=== PATIENT | male | born 1955 | race Caucasian/White ===

== ENCOUNTER 2016-04-23 08:05 | Day surgery (SDC) | payer OTHER ==
[2016-04-19 09:20] VITALS: BMI 37.0
[2016-04-23] MEDS ORDERED: LIDOCAINE HCL/PF 2% SDV 5ML VIAL ONE (09:19)
[2016-04-23] MEDS ORDERED: PROPOFOL 20 ML ONE (09:20)
[2016-04-23 10:26] VITALS: TEMP 98.1
[2016-04-23 10:41] VITALS: BP 108/60; PULSE 55
== END 2016-04-23 10:50 | disposition home or self-care (01) ==
LOC: FASU-ENDO 08:05
PROVIDERS: ATTEND Internal Medicine Gastroenterology
PROC: 0DJD8ZZ Inspection of Lower Intestinal Tract, Via Natural or Artificial Opening Endoscopic (ICD-10-PCS; principal; 2016-04-23 09:54)
DX: Z86.010 Personal history of colon polyps (principal); K57.30 Diverticulosis of large intestine without perforation or abscess without bleeding